=== PATIENT | female | born 1970 | race American Indian/Alaskan Native ===

== ENCOUNTER 2017-04-19 11:42 | Outpatient (CLI) | payer OTHER ==
--- NOTE | 2017-04-19 12:24 | XRay Report ---
ROUTINE CHEST, TWO VIEWS: HISTORY: chest pain. The trachea, heart, mediastinal contour, lung boyd and bony thorax are unremarkable. IMPRESSION: Unremarkable chest x-ray.
--- NOTE | 2017-04-19 13:21 | Mammography Report ---
Bilateral mammogram: Compared to 08/12/15. CAD study utilized. Findings: Scattered lingular parenchyma bilaterally. No mass or microcalcification. Benign axillary nodes. Impression: Benign findings. Annual followup recommended. BI-RADS CATEGORY: 2 = Benign ACR BI-RADS MAMMOGRAPHIC CODES: 0 = Needs additional imaging evaluation; 1 = Negative; 2 = Benign; 3 = Probably benign; 4 = Suspicious; 5 = Malignant; 6 = Known biopsy-proven malignancy COMMENT: 1. Dense breast tissue, i.e., adenosis, fibrocystic changes, etc., may obscure an underlying neoplasm. 2. Approximately 10% of cancers are not detected with mammography. 3. A negative mammography report should not delay biopsy if a clinically suspicious mass is present. COMMENT: Patient follow-up letters are generated in [employer].
== END 2017-04-19 11:43 | disposition home or self-care (01) ==
LOC: MAMMO 11:42
PROVIDERS: ATTEND Nurse Practitioner Family
DX: Z12.31 Encounter for screening mammogram for malignant neoplasm of breast (principal); R07.89 Other chest pain; I10 Essential (primary) hypertension
CPT/HCPCS: 71020; G0202; 77067

== ENCOUNTER 2021-12-31 14:33 | Observation (INO) | payer OTHER ==
[2021-12-31] MEDS ORDERED: SODIUM CHLORIDE 0.9% 1000 ML 1,000 ML ONE (14:57)
[2021-12-31] MEDS ORDERED: SODIUM CHLORIDE 0.9% 1000 ML 1,000 ML IV ONE (15:04)
--- NOTE | 2021-12-31 15:44 | XRay Report ---
CHEST 1 VIEW 12/31/2021 3:09 PM INDICATION / CLINICAL INFORMATION: Dysrhythmia. COMPARISON: 6-17 FINDINGS: SUPPORT DEVICES: None. HEART / MEDIASTINUM: Mild cardiomegaly. LUNGS / PLEURA: No significant pulmonary or pleural abnormality. No pneumothorax. ADDITIONAL FINDINGS: No significant additional findings. IMPRESSION: 1. Mild cardiomegaly. Signer Name: Carlton Barnard MD Signed: 12/31/2021 3:39 PM Workstation Name: [id number]
[2021-12-31 15:47] LABS: Basophils # (Auto) 0.1 K/mm3 (0.0-0.1); Basophils % (Auto) 0.9 % (0.0-1.8); Eosinophils % (Auto) 0.4 % (0.0-4.3); Hematocrit 48.2 % (30.3-42.9); Hemoglobin 15.4 gm/dl (10.1-14.3); Lymphocytes # (Auto) 1.2 K/mm3 (1.2-5.4); Lymphocytes % (Auto) 18.7 % (13.4-35.0); Mean Corpuscular HGB Conc 32 % (30-34); Mean Corpuscular Volume 88 fl (79-97); Monocytes # (Auto) 0.6 K/mm3 (0.0-0.8); Platelet Count 281 K/mm3 (140-440); Red Blood Count 5.47 M/mm3 (3.65-5.03); Red Cell Distribution Width 13.2 % (13.2-15.2)
[2021-12-31 15:58] LABS: INR 0.92 (0.87-1.13)
[2021-12-31 16:39] LABS: Creatine Kinase MB 3.5 ng/mL (0.0-4.0)
[2021-12-31 16:40] LABS: Alanine Aminotransferase 15 units/L (7-56); Albumin 3.7 g/dL (3.9-5); BUN/Creatinine Ratio 11; Blood Urea Nitrogen 10 mg/dL (7-17); Calcium 8.6 mg/dL (8.4-10.2); Hemolysis Index 16
[2021-12-31 16:51] LABS: Chol/HDL Ratio 4.19 %; HDL Cholesterol 42 mg/dL (40-59); LDL Cholesterol,Direct 121 mg/dL (50-130)
[2021-12-31] MEDS ORDERED: METOPROLOL TARTRATE 5 MG/5 ML INJ IV ONE (16:56)
--- NOTE | 2021-12-31 17:51 | Cat Scan Report ---
CTA CHEST WITH CONTRAST INDICATION / CLINICAL INFORMATION: palpitation. TECHNIQUE: Axial CT images were obtained through the chest after injection of 75 cc of Omnipaque 350 IV contrast. 3 plane MIP and/or 3D reconstructions were produced. All CT scans at this location are p erformed using CT dose reduction for ALARA by means of automated exposure control. COMPARISON: None available. FINDINGS: PULMONARY ARTERIES: No pulmonary emboli. The main pulmonary artery is dilated at 3.6 cm. THORACIC AORTA: No significant abnormality. HEART: Cardiomegaly. CORONARY ARTERY CALCIFICATION: None. MEDIASTINUM / DARCY: No significant abnormality. PLEURA: No pleural effusion. No pneumothorax. LUNGS: No acute air space or interstitial disease. ADDITIONAL FINDINGS: None. UPPER ABDOMEN: No acute findings. SKELETAL STRUCTURES: No significant osseous abnormality. IMPRESSION: 1. No CT evidence for pulmonary embolism. 2. Main pulmonary artery is dilated which can be seen with pulmonary artery hypertension. 3. Cardiomegaly. Signer Name: Carlton Barnard MD Signed: 12/31/2021 5:47 PM Workstation Name: [id number]
--- NOTE | 2021-12-31 18:05 | Emergency Department Report ---
ED Palpitations HPI - General Chief Complaint: Arrhythmia/Palpitations Stated Complaint: DIZZY/PALPITATION Time Seen by Provider: 12/31/21 14:46 Source: patient Mode of arrival: Ambulatory Limitations: No Limitations - History of Present Illness Initial Comments: Pt reports fast heart rate, pt states that she has had this happen before 10 years ago , she had some jael D yesterday no chest pain no sob MD Complaint: rapid heart beat, palpitations -: days(s) Arrythmia History: SVT - Related Data Allergies Allergy/AdvReac Type Severity Reaction Status Date / Time No Known Allergies Allergy Verified 12/31/21 14:42 ED Review of Systems ROS: Stated complaint: DIZZY/PALPITATION Other details as noted in HPI Constitutional: denies: chills, fever Eyes: denies: eye pain, eye discharge, vision change ENT: denies: ear pain, throat pain Respiratory: denies: cough, shortness of breath, wheezing Cardiovascular: denies: chest pain, palpitations Endocrine: no symptoms reported Gastrointestinal: denies: abdominal pain, nausea, diarrhea Genitourinary: denies: urgency, dysuria, discharge Musculoskeletal: denies: back pain, joint swelling, arthralgia Skin: denies: rash, lesions Neurological: denies: headache, weakness, paresthesias Psychiatric: denies: anxiety, depression Hematological/Lymphatic: denies: easy bleeding, easy bruising ED Past Medical Hx - Past Medical History Hx Hypertension: Yes Additional medical history: GRAVES DISEASE - Social History Smoking Status: Never Smoker Substance Use Type: Alcohol ED Physical Exam - General Limitations: No Limitations General appearance: alert, in no apparent distress - Head Head exam: Present: atraumatic, normocephalic - Eye Eye exam: Present: normal appearance - ENT ENT exam: Present: mucous membranes moist - Neck Neck exam: Present: normal inspection - Respiratory Respiratory exam: Present: normal lung sounds bilaterally. Absent: respiratory distress - Cardiovascular Cardiovascular Exam: Present: normal rhythm, tachycardia. Absent: systolic murmur, diastolic murmur, rubs, gallop - GI/Abdominal GI/Abdominal exam: Present: soft, normal bowel sounds - Extremities Exam Extremities exam: Present: normal inspection - Back Exam Back exam: Present: normal inspection - Neurological Exam Neurological exam: Present: alert, oriented X3 - Psychiatric Psychiatric exam: Present: normal affect, normal mood - Skin Skin exam: Present: warm, dry, intact, normal color. Absent: rash ED Course Vital Signs 12/31/21 12/31/21 14:43 15:00 Temperature 98.3 F Pulse Rate 162 H 144 H Respiratory 16 18 Rate Blood Pressure 81/44 111/65 O2 Sat by Pulse 97 98 Oximetry - Reevaluation(s) Reevaluation #1: 12/31/21 18:01 work up showed sinus tachycardia , fluids given , HR is down , trop was up , no chest pain , will admit for card consult ED Medical Decision Making - Lab Data Result diagrams: 12/31/21 15:38 12/31/21 15:38 Critical care attestation.: If time is entered above; I have spent that time in minutes in the direct care of this critically ill patient, excluding procedure time. ED Disposition Clinical Impression: Palpitation, Elevated troponin Disposition: ADMITTED INPATIENT Is pt being admited?: Yes Does the pt Need Aspirin: Yes Condition: Stable Referrals: JESSICA BROWN [Other] - 3-5 Days
[2021-12-31] MEDS ORDERED: ACETAMINOPHEN 325 MG TAB PO PRN (19:06)
[2021-12-31] MEDS ORDERED: ONDANSETRON 4 MG/2 ML INJ IV PRN (19:06)
[2021-12-31] MEDS ORDERED: oxyCODONE /ACETAMINOPHEN 5-325MG TAB PO PRN (19:06)
[2021-12-31] MEDS ORDERED: D5W/0.9% NACL 1,000 ML IV SCH (20:00)
[2021-12-31 20:10] LABS: Free T4 (Free Thyroxine) 1.45 ng/dL (0.76-1.46)
[2021-12-31] MEDS ORDERED: FAMOTIDINE 20 MG/2 ML INJ IV SCH (22:00)
[2022-01-01 05:02] LABS: Basophils # (Auto) 0.1 K/mm3 (0.0-0.1); Basophils % (Auto) 0.9 % (0.0-1.8); Eosinophils # (Auto) 0.1 K/mm3 (0.0-0.4); Hematocrit 42.3 % (30.3-42.9); Lymphocytes # (Auto) 1.8 K/mm3 (1.2-5.4); Lymphocytes % (Auto) 23.1 % (13.4-35.0); Mean Corpuscular HGB Conc 33 % (30-34); Mean Corpuscular Volume 88 fl (79-97); Monocytes # (Auto) 0.8 K/mm3 (0.0-0.8); Monocytes % (Auto) 9.9 % (0.0-7.3); Platelet Count 265 K/mm3 (140-440); Red Blood Count 4.79 M/mm3 (3.65-5.03)
[2022-01-01 05:21] LABS: Alanine Aminotransferase 14 units/L (7-56); Albumin 3.5 g/dL (3.9-5); BUN/Creatinine Ratio 10; Blood Urea Nitrogen 9 mg/dL (7-17); Calcium 8.2 mg/dL (8.4-10.2); Hemolysis Index 7
--- NOTE | 2022-01-01 06:43 | History and Physical Report ---
History of Present Illness Date of examination: 12/31/21 Date of admission: 12/31/21 19:06 Chief complaint: Palpitations for 1 day History of present illness: 51-year-old female with history of Graves' disease and hypertension comes in for palpitations since a.m. Patient took Linnea-D for cold and congestion. Patient is not on any medication for thyrotoxicosis. Noncompliant with medications. Patient had similar episode 10 years ago. No chest pain. No fever and chills. No nausea vomiting diarrhea. No recent exposure to Covid. Covid vaccination status was not asked - Past Medical History --Hypertension: Yes --Additional medical history: GRAVES' DISEASE - Past surgical history --not available - family history -- Htn - Social History --Smoking Status: Never Smoker --Substance Use Type: Alcohol Review of Systems ROS: Stated complaint: DIZZY/PALPITATION Other details as noted in HPI Constitutional: denies: chills, fever Eyes: denies: eye pain, eye discharge, vision change ENT: denies: ear pain, throat pain Respiratory: denies: cough, shortness of breath, wheezing Cardiovascular: denies: chest pain, palpitations Endocrine: no symptoms reported Gastrointestinal: denies: abdominal pain, nausea, diarrhea Genitourinary: denies: urgency, dysuria, discharge Musculoskeletal: denies: back pain, joint swelling, arthralgia Skin: denies: rash, lesions Neurological: denies: headache, weakness, paresthesias Psychiatric: denies: anxiety, depression Hematological/Lymphatic: denies: easy bleeding, easy bruising Medications and Allergies Allergies Allergy/AdvReac Type Severity Reaction Status Date / Time No Known Allergies Allergy Verified 12/31/21 14:42 Home Medications Medication Instructions Recorded Confirmed Last Taken Type Atenolol 50 mg PO DAILY 01/01/22 01/01/22 1 Day Ago History ~12/31/21 Levothyroxine Sodium [Euthyrox] 100 mcg PO DAILY 01/01/22 01/01/22 1 Day Ago History ~12/31/21 40 mg Omeprazole 40 mg PO DAILY 01/01/22 01/01/22 1 Day Ago History ~12/31/21 40 mg Spironolactone 100 mg PO DAILY 01/01/22 01/01/22 1 Day Ago History ~12/31/21 100 mg Vitamin C 1,000 mg PO DAILY 01/01/22 01/01/22 1 Day Ago History ~12/31/21 Active Meds: Active Medications Acetaminophen (Acetaminophen 325 Mg Tab) 650 mg PO Q4H PRN PRN Reason: Pain MILD(1-3)/Fever >100.5/ARGUELLES Famotidine (Famotidine 20 Mg/2 Ml Inj) 20 mg IV BID JUDY Dextrose/Sodium Chloride (D5ns) 1,000 mls @ 100 mls/hr IV DIRECT JUDY Last Admin: 01/01/22 05:45 Dose: 100 mls/hr Ondansetron HCl (Ondansetron 4 Mg/2 Ml Inj) 4 mg IV Q8H PRN PRN Reason: Nausea And Vomiting Oxycodone/Acetaminophen (Oxycodone /Acetaminophen 5-325mg Tab) 1 tab PO Q6H PRN PRN Reason: Pain, Moderate (4-6) Sodium Chloride (Sodium Chloride 0.9% 10 Ml Flush Syringe) 10 ml IV BID JUDY Sodium Chloride (Sodium Chloride 0.9% 10 Ml Flush Syringe) 10 ml IV PRN PRN PRN Reason: LINE FLUSH Exam - Constitutional Vitals: Temp Pulse Resp BP Pulse Ox 98 F 81 18 97/52 98 01/01/22 04:00 01/01/22 04:00 01/01/22 04:00 01/01/22 04:00 01/01/22 04:00 General appearance: Present: no acute distress, well-nourished - EENT Eyes: Present: PERRL ENT: hearing intact, clear oral mucosa - Neck Neck: Present: supple, normal ROM - Respiratory Respiratory effort: normal Respiratory: bilateral: CTA - Cardiovascular Heart rate: 78 Rhythm: regular Heart Sounds: Present: S1 & S2. Absent: rub, click - Extremities Extremities: no ischemia, pulses intact, pulses symmetrical, No edema Peripheral Pulses: within normal limits - Abdominal General gastrointestinal: Present: soft, non-tender, non-distended, normal bowel sounds Female genitourinary: Present: normal - Rectal Rectal Exam: deferred - Integumentary Integumentary: Present: clear, warm, dry - Musculoskeletal Musculoskeletal: gait normal, strength equal bilaterally - Psychiatric Psychiatric: appropriate mood/affect, intact judgment & insight - Neurologic Neurologic: CNII-XII intact, moves all extremities - Allied Health Allied health notes reviewed: nursing, case management HEART Score - HEART Score Troponin: Troponin T 0.041 ng/mL (0.00-0.029) H 12/31/21 15:38 Results - Labs CBC & Chem 7: 01/01/22 04:28 01/01/22 04:28 Labs: Laboratory Last Values WBC 7.7 K/mm3 (4.5-11.0) 01/01/22 04:28 RBC 4.79 M/mm3 (3.65-5.03) 01/01/22 04:28 Hgb 14.0 gm/dl (10.1-14.3) 01/01/22 04:28 Hct 42.3 % (30.3-42.9) 01/01/22 04:28 MCV 88 fl (79-97) 01/01/22 04:28 MCH 29 pg (28-32) 01/01/22 04:28 MCHC 33 % (30-34) 01/01/22 04:28 RDW 13.0 % (13.2-15.2) L 01/01/22 04:28 Plt Count 265 K/mm3 (140-440) 01/01/22 04:28 Lymph % (Auto) 23.1 % (13.4-35.0) 01/01/22 04:28 [place] % (Auto) 9.9 % (0.0-7.3) H 01/01/22 04:28 Eos % (Auto) 1.0 % (0.0-4.3) 01/01/22 04:28 Baso % (Auto) 0.9 % (0.0-1.8) 01/01/22 04:28 Lymph # (Auto) 1.8 K/mm3 (1.2-5.4) 01/01/22 04:28 [place] # (Auto) 0.8 K/mm3 (0.0-0.8) 01/01/22 04:28 Eos # (Auto) 0.1 K/mm3 (0.0-0.4) 01/01/22 04:28 Baso # (Auto) 0.1 K/mm3 (0.0-0.1) 01/01/22 04:28 Seg Neutrophils % 65.1 % (40.0-70.0) 01/01/22 04:28 Seg Neutrophils # 5.0 K/mm3 (1.8-7.7) 01/01/22 04:28 PT 13.4 Sec. (12.2-14.9) 12/31/21 15:38 INR 0.92 (0.87-1.13) 12/31/21 15:38 Sodium 141 mmol/L (137-145) 01/01/22 04:28 Potassium 3.6 mmol/L (3.6-5.0) 01/01/22 04:28 Chloride 107.3 mmol/L (98-107) H 01/01/22 04:28 Carbon Dioxide 23 mmol/L (22-30) 01/01/22 04:28 Anion Gap 14 mmol/L 01/01/22 04:28 BUN 9 mg/dL (7-17) 01/01/22 04:28 Creatinine 0.9 mg/dL (0.6-1.2) 01/01/22 04:28 Estimated GFR > 60 ml/min 01/01/22 04:28 BUN/Creatinine Ratio 10 % 01/01/22 04:28 Glucose 108 mg/dL (65-100) H 01/01/22 04:28 Calcium 8.2 mg/dL (8.4-10.2) L 01/01/22 04:28 Magnesium 1.90 mg/dL (1.7-2.3) 12/31/21 15:38 Total Bilirubin 0.50 mg/dL (0.1-1.2) 01/01/22 04:28 AST 18 units/L (5-40) 01/01/22 04:28 ALT 14 units/L (7-56) 01/01/22 04:28 Alkaline Phosphatase 66 units/L (35-129) 01/01/22 04:28 Total Creatine Kinase 132 units/L (30-135) 12/31/21 15:38 CK-MB (CK-2) 3.5 ng/mL (0.0-4.0) 12/31/21 15:38 CK-MB (CK-2) Rel Index 2.6 (0-4) 12/31/21 15:38 Troponin T 0.041 ng/mL (0.00-0.029) H 12/31/21 15:38 NT-Pro-B Natriuret Pep 571.9 pg/mL (0-900) 12/31/21 15:38 Total Protein 6.0 g/dL (6.3-8.2) L 01/01/22 04:28 Albumin 3.5 g/dL (3.9-5) L 01/01/22 04:28 Albumin/Globulin Ratio 1.4 % 01/01/22 04:28 Triglycerides 95 mg/dL (2-149) 12/31/21 15:38 Cholesterol 176 mg/dL (50-199) 12/31/21 15:38 LDL Cholesterol Direct 121 mg/dL (50-130) 12/31/21 15:38 HDL Cholesterol 42 mg/dL (40-59) 12/31/21 15:38 Cholesterol/HDL Ratio 4.19 % 12/31/21 15:38 TSH 0.193 mlU/mL (0.270-4.200) L 12/31/21 15:38 TSH 0.195 mlU/mL (0.270-4.200) L 12/31/21 15:38 Free T4 1.45 ng/dL (0.76-1.46) 12/31/21 15:38 Thyroxine (T4) 9.5 ug/dL (4.0-12.0) 12/31/21 15:38 Short CBC 12/31/21 01/01/22 Range/Units 15:38 04:28 WBC 6.3 7.7 (4.5-11.0) K/mm3 Hgb 15.4 H 14.0 (10.1-14.3) gm/dl Hct 48.2 H 42.3 (30.3-42.9) % Plt Count 281 265 (140-440) K/mm3 BMP 12/31/21 01/01/22 15:38 04:28 Sodium 139 141 Potassium 4.3 3.6 Chloride 105.1 107.3 H Carbon Dioxide 23 23 BUN 10 9 Creatinine 0.9 0.9 Glucose 101 H 108 H Calcium 8.6 8.2 L Cardiac Enzymes 12/31/21 Range/Units 15:38 Total Creatine Kinase 132 (30-135) units/L CK-MB (CK-2) 3.5 (0.0-4.0) ng/mL Troponin T 0.041 H (0.00-0.029) ng/mL Liver Function 12/31/21 01/01/22 Range/Units 15:38 04:28 Total Bilirubin 0.30 0.50 (0.1-1.2) mg/dL AST 20 18 (5-40) units/L ALT 15 14 (7-56) units/L Alkaline Phosphatase 82 66 (35-129) units/L Albumin 3.7 L 3.5 L (3.9-5) g/dL - Imaging and Cardiology EKG: report reviewed (Sinus tachycardia) Imaging and Cardiology: Chest x-ray Mild cardiomegaly CTA chest No CT evidence for pulmonary embolism Main pulmonary artery is dilated which can be seen with pulmonary artery hypertension Cardiomegaly Assessment and Plan Advance Directives: Yes (Full code) VTE prophylaxis?: Chemical Plan of care discussed with patient/family: Yes - Patient Problems (1) Tachycardia Current Visit: Yes Status: Acute Plan to address problem: Patient has tachycardia secondary to thyrotoxicosis Thyroid panel and T3-T4 requested IV fluids for now Patient started on methimazole (2) Hypertension Current Visit: Yes Status: Chronic Qualifiers: Hypertension type: primary hypertension Qualified Code(s): I10 - Essential (primary) hypertension Plan to address problem: Continue antihypertensives and adjust medications (3) Thyrotoxicosis Current Visit: Yes Status: Acute Qualifiers: Thyrotoxic crisis or storm presence: without thyrotoxic crisis or storm Plan to address problem: Thyroid panel T3-T4 requested TSH requested Patient to be started on methimazole 5 mg 3 times a day Patient also was started on propranolol 3 times a day (4) Elevated troponin Current Visit: Yes Status: Acute Plan to address problem: Troponin leak 1 more set of troponin and CK CK-MB (5) DVT prophylaxis Current Visit: Yes Status: Acute Plan to address problem: On anticoagulation GI prophylaxis (6) Advance care planning Current Visit: Yes Status: Acute Plan to address problem: Disease education conducted, care plan discussed, diagnosis discussed, prognosis discussed. Patient is full code. Patient acknowledges understanding and agreement with care plan. +30 minutes.
--- NOTE | 2022-01-01 07:04 | Event Note ---
Date: 12/31/21 Patient is supposed to be started on methimazole and propranolol because of Graves' disease Patient is apparently treated and is on levothyroxine 100 mcg Levothyroxine dosage decreased to 75 mcg because of the increased TSH T3 and T4 are normal Atenolol is appropriate in this patient Methimazole and propranolol were not started Admitted for observation for 23 hours and if symptomatically better patient to be discharged
[2022-01-01] MEDS ORDERED: PANTOPRAZOLE 40 MG TAB PO SCH (09:00)
[2022-01-01] MEDS ORDERED: LEVOTHYROXINE 75 MCG TAB PO SCH (09:00)
[2022-01-01] MEDS ORDERED: ASCORBIC ACID 500 MG TAB PO SCH (10:00)
[2022-01-01] MEDS ORDERED: SPIRONOLACTONE 100 MG PO SCH (10:00)
[2022-01-01] MEDS ORDERED: VITAMIN C 1000 MG PO SCH (10:00)
[2022-01-01] MEDS ORDERED: LEVOTHYROXINE 100 MCG TAB PO SCH (10:00)
[2022-01-01] MEDS ORDERED: NON-FORMULARY EACH (Omeprazole 40 MG) PO SCH (10:00)
[2022-01-01] MEDS ORDERED: ATENOLOL 50 MG PO SCH (10:00)
[2022-01-01] MEDS ORDERED: SPIRONOLACTONE 50 MG TAB PO SCH (10:00)
[2022-01-01] MEDS ORDERED: atenoloL 50 MG TAB PO SCH ×2 (10:00)
[2022-01-01] MEDS ORDERED: POLYETHYLENE GLYCOL 3350 17 GM POWDER PO SCH (10:00)
[2022-01-01] MEDS ORDERED: atenoloL 25 MG TAB PO SCH (11:00)
--- NOTE | 2022-01-01 12:27 | Discharge Summary ---
Providers - Providers Date of Admission: 12/31/21 19:06 Date of discharge: 01/01/22 Attending physician: CHANDLER AKHTAR MD Hospitalization Reason for admission: Thyrotoxicosis Condition: Stable Pertinent studies: Reviewed. Procedures: None. Hospital course: Patient is a 51-year-old female past medical history of Graves' disease and hypertension who presented yesterday with palpitations, shortness of breath, and lightheadedness. The patient endorses taking Linnea-D for cold and congestion + BC powder for approximately 2-4 weeks for nasal congestion that developed after recent COVID-19 infection. The patient endorses taking her levothyroxine daily; however, it was determined that she was not taking her medication appropriately. The patient was taking her levothyroxine at the same time as other medications, and she was also taking it at approximately 1 PM. Patient has been counseled on how to administer levothyroxine. Patient expresses understanding. On admission the patient was found to be tachycardic to 162 and her TSH was 0.193 with a T4 within normal limits. The decision was made to reduce her levothyroxine dose from 137mcg to 75 mcg daily. Patient will be restarted on atenolol 25 mg daily due to low blood pressure. Patient expresses understanding. Patient has been hemodynamically stable. Patient is medically clear for discharge. Patient has been counseled on following up with her primary care provider to have repeat TSH and free T4 levels drawn in approximately 2 weeks Disposition: 01 HOME / SELF CARE / HOMELESS Final Discharge Diagnosis (Prints w/discharge instructions): Thyrotoxicosis, Graves' disease, hypertension, obesity. Time spent for discharge: 45 min Core Measure Documentation - Palliative Care Palliative Care/ Comfort Measures: Not Applicable - Core Measures Any of the following diagnoses?: none Exam - Constitutional Vitals: Temp Pulse Resp BP Pulse Ox 98 F 81 18 97/52 98 01/01/22 04:00 01/01/22 06:45 01/01/22 04:00 01/01/22 04:00 01/01/22 04:00 General appearance: Present: no acute distress, well-nourished, obese - EENT Eyes: Present: PERRL, EOM intact ENT: hearing intact, clear oral mucosa, dentition normal - Neck Neck: Present: supple, normal ROM - Respiratory Respiratory effort: normal Respiratory: bilateral: CTA - Cardiovascular Rhythm: regular Heart Sounds: Present: S1 & S2 - Extremities Extremities: no ischemia, pulses intact, pulses symmetrical, No edema, normal temperature, normal color, Full ROM Peripheral Pulses: within normal limits - Abdominal General gastrointestinal: Present: soft, non-tender, non-distended, normal bowel sounds Female genitourinary: Present: deferred - Rectal Rectal Exam: deferred - Integumentary Integumentary: Present: clear, warm, dry - Musculoskeletal Musculoskeletal: strength equal bilaterally - Psychiatric Psychiatric: appropriate mood/affect, intact judgment & insight, memory intact, cooperative - Neurologic Neurologic: CNII-XII intact, moves all extremities - Allied Health Allied health notes reviewed: nursing Plan Activity: no restrictions Diet: low salt Additional Instructions: Patient is a 51-year-old female past medical history of Graves' disease and hypertension who presented yesterday with palpitations, shortness of breath, and lightheadedness. The patient endorses taking Linnea-D for cold and congestion + BC powder for approximately 2-4 weeks for nasal congestion that developed after recent COVID-19 infection. The patient endorses taking her levothyroxine daily; however, it was determined that she was not taking her medication appropriately. The patient was taking her levothyroxine at the same time as other medications, and she was also taking it at approximately 1 PM. Patient has been counseled on how to administer levothyroxine. Patient expresses understanding. On admission the patient was found to be tachycardic to 162 and her TSH was 0.193 with a T4 within normal limits. The decision was made to reduce her levothyroxine dose from 137mcg to 75 mcg daily. Patient will be restarted on atenolol 25 mg daily due to low blood pressure. Patient expresses understanding. Patient has been hemodynamically stable. Patient is medically clear for discharge. Patient has been counseled on following up with her primary care provider to have repeat TSH and free T4 levels drawn in approximately 2 weeks Care Plan Goals: Patient is medically clear for discharge. Assessment: Patient is a 51-year-old female past medical history of Graves' disease and hypertension who presented yesterday with palpitations, shortness of breath, and lightheadedness. The patient endorses taking Linnea-D for cold and congestion + BC powder for approximately 2-4 weeks for nasal congestion that developed after recent COVID-19 infection. The patient endorses taking her levothyroxine daily; however, it was determined that she was not taking her medication appropriately. The patient was taking her levothyroxine at the same time as other medications, and she was also taking it at approximately 1 PM. Patient has been counseled on how to administer levothyroxine. Patient expresses understanding. On admission the patient was found to be tachycardic to 162 and her TSH was 0.193 with a T4 within normal limits. The decision was made to r educe her levothyroxine dose from 137mcg to 75 mcg daily. Patient will be restarted on atenolol 25 mg daily due to low blood pressure. Patient expresses understanding. Patient has been hemodynamically stable. Patient is medically clear for discharge. Patient has been counseled on following up with her primary care provider to have repeat TSH and free T4 levels drawn in approximately 2 weeks. Follow up with: JESSICA BROWN [Other] - 3-5 Days Forms: Work/School Release Form Prescriptions: Levothyroxine [Synthroid] 75 mcg PO DAILY@0600 #30 tablet atenoloL [Tenormin] 25 mg PO QDAY #30 tablet
[2022-01-01 15:03] VITALS: BP 107/52
--- NOTE | 2022-01-02 13:16 | Electrocardiograph Report ---
[facility] Test Date: 2021-12-31 Test Time: 14:59:49 Pat Name: KODAK BERG Department: Room: A459 1 Gender: F Nitroglycerin Neutralizer: ALISON : 1970 Requested By: SHANEL ROLDAN Order Number: [id number] Reading MD: Nelsy Chang Measurements Intervals [place] Rate: 150 P: 0 [place]: QRS: 13 QRSD: 82 T: 60 QT: 285 QTc: 451 Interpretive Statements Supraventricular tachycardia No previous ECG available for comparison Electronically Signed On 01-02-2022 13:15:54 EST by Nelsy Chang
== END 2022-01-01 17:00 | disposition home or self-care (01) ==
LOC: ED 14:33 → 4A 19:06
PROVIDERS: ADMIT Internal Medicine; ATTEND Student in an Organized Health Care Education/Training Program
DX: R00.0 Tachycardia, unspecified (principal); I10 Essential (primary) hypertension; E05.90 Thyrotoxicosis, unspecified without thyrotoxic crisis or storm; R77.8 Other specified abnormalities of plasma proteins; E05.00 Thyrotoxicosis with diffuse goiter without thyrotoxic crisis or storm; R42 Dizziness and giddiness; Z79.899 Other long term (current) drug therapy; Z98.890 Other specified postprocedural states
CPT/HCPCS: 36415; 71045; 71275; 80053; 80061; 82550; 82553; 83735; 83880; 84436; 84439; 84443; 84484; 85025; 85610; 86800; 93005; 93010; 96361; 96374; 99285; G0378; J7030; J7042; J9280; Q9967; J3490; Q0162

== ENCOUNTER 2022-06-25 12:50 | Emergency (ER) | payer OTHER ==
--- NOTE | 2022-06-25 13:55 | Emergency Department Report ---
ED Palpitations HPI - General Chief Complaint: Arrhythmia/Palpitations Stated Complaint: RAPID HEARTBEAT Time Seen by Provider: 06/25/22 13:50 Source: patient Mode of arrival: Ambulatory Limitations: No Limitations - History of Present Illness Initial Comments: 51-year-old female with hypertension, obesity, Graves' disease,, previous admission in December 2021 for thyrotoxicosis, presents for evaluation of acute onset of palpitations. Patient states she awoke at 11 AM this morning and noticed her heart rate was "beating very fast." She reports experiencing intermittent tightness in her chest but denies any shortness of breath difficulty breathing chest pain or pain or swelling in her legs. No recent prolonged travel hx or immobilization. She denies any cough or URI symptoms. She denies using any energy drinks or drinking caffeinated products. She reports having used Linnea-[facility] 2 days ago. States that after her admission here in December 2021, she followed up with a mapping specialist and saw Dr. Lizandro Curran. She reports that at that time she underwent a 48-hour Holter monitor as well as an echocardiogram" he states there was nothing bad to be found and that I was to follow-up if needed." She states she has a follow-up appoint with her primary care doctor in 2 days which is Monday, June 27, 2022. - Related Data Home Medications Medication Instructions Recorded Confirmed Last Taken Omeprazole 40 mg PO DAILY 01/01/22 01/01/22 1 Day Ago ~12/31/21 40 mg Spironolactone 100 mg PO DAILY 01/01/22 01/01/22 1 Day Ago ~12/31/21 100 mg Vitamin C 1,000 mg PO DAILY 01/01/22 01/01/22 1 Day Ago ~12/31/21 Previous Rx's Medication Instructions Recorded Last Taken Type Levothyroxine [Synthroid] 75 mcg PO DAILY@0600 #30 tablet 01/01/22 Unknown Rx atenoloL [Tenormin] 25 mg PO QDAY #30 tablet 01/01/22 Unknown Rx Allergies Allergy/AdvReac Type Severity Reaction Status Date / Time No Known Allergies Allergy Verified 06/25/22 13:30 ED Review of Systems ROS: Stated complaint: RAPID HEARTBEAT Other details as noted in HPI Comment: All other systems reviewed and negative ED Past Medical Hx - Past Medical History Previous Medical History?: Yes Hx Hypertension: Yes Hx Congestive Heart Failure: No Hx Diabetes: No Hx Asthma: No Hx COPD: No Hx HIV: No Additional medical history: GRAVES DISEASE - Social History Smoking Status: Never Smoker - Medications Home Medications: Home Medications Medication Instructions Recorded Confirmed Last Taken Type Levothyroxine [Synthroid] 75 mcg PO DAILY@0600 #30 tablet 01/01/22 Unknown Rx Omeprazole 40 mg PO DAILY 01/01/22 01/01/22 1 Day Ago History ~12/31/21 40 mg Spironolactone 100 mg PO DAILY 01/01/22 01/01/22 1 Day Ago History ~12/31/21 100 mg Vitamin C 1,000 mg PO DAILY 01/01/22 01/01/22 1 Day Ago History ~12/31/21 atenoloL [Tenormin] 25 mg PO QDAY #30 tablet 01/01/22 Unknown Rx ED Physical Exam - General Limitations: No Limitations General appearance: alert, in no apparent distress, other (Friendly, comfortable appearing, no drooling no stridor no respiratory distress, breathing unlabored,) - Head Head exam: Present: atraumatic, normocephalic, normal inspection - Eye Eye exam: Present: normal appearance, PERRL, EOMI Pupils: Present: normal accommodation - ENT ENT exam: Present: normal exam, normal orophraynx - Neck Neck exam: Present: normal inspection, full ROM. Absent: tenderness, meningismus, lymphadenopathy, thyromegaly - Respiratory Respiratory exam: Present: normal lung sounds bilaterally, respiratory distress - Cardiovascular Cardiovascular Exam: Present: normal rhythm, tachycardia, normal heart sounds. Absent: irregular rhythm, systolic murmur, diastolic murmur, rubs, gallop, clicks, JVD, S3, S4 - GI/Abdominal GI/Abdominal exam: Present: soft, normal bowel sounds. Absent: distended, tenderness, guarding, rebound, rigid, diminished bowel sounds, hyperactive bowel sounds, hypoactive bowel sounds, organomegaly, mass, bruit, pulsatile mass - External exam: Present: erythema, swelling - Extremities Exam Extremities exam: Present: normal inspection, full ROM, normal capillary refill. Absent: tenderness, pedal edema, joint swelling, calf tenderness, other - Back Exam Back exam: Present: normal inspection, full ROM. Absent: tenderness, CVA tenderness (R), CVA tenderness (L), muscle spasm, paraspinal tenderness, vertebral tenderness, rash noted - Neurological Exam Neurological exam: Present: alert, oriented X3, CN II-XII intact, normal gait, reflexes normal. Absent: motor sensory deficit - Psychiatric Psychiatric exam: Present: normal affect, normal mood - Skin Skin exam: Present: warm, dry, intact, normal color ED Course Vital Signs 06/25/22 06/25/22 06/25/22 13:28 13:48 14:01 Temperature 98.8 F Pulse Rate 166 H 155 H Respiratory 18 15 Rate Blood Pressure 131/80 Blood Pressure 123/81 [Left] O2 Sat by Pulse 98 97 98 Oximetry 06/25/22 06/25/22 06/25/22 14:15 14:31 14:45 Temperature Pulse Rate 148 H 150 H 154 H Respiratory 15 15 15 Rate Blood Pressure 131/80 131/80 159/82 Blood Pressure [Left] O2 Sat by Pulse 96 97 98 Oximetry 06/25/22 06/25/22 06/25/22 15:01 15:15 15:31 Temperature Pulse Rate 147 H 134 H 132 H Respiratory 16 15 18 Rate Blood Pressure 159/82 158/86 158/86 Blood Pressure [Left] O2 Sat by Pulse 97 96 96 Oximetry 06/25/22 06/25/22 06/25/22 15:45 16:01 16:21 Temperature Pulse Rate 135 H 140 H 134 H Respiratory 18 10 L 18 Rate Blood Pressure 135/79 159/82 135/79 Blood Pressure [Left] O2 Sat by Pulse 96 96 96 Oximetry 06/25/22 06/25/22 06/25/22 16:31 16:41 16:51 Temperature Pulse Rate 134 H 140 H 141 H Respiratory 18 17 13 Rate Blood Pressure 135/79 135/79 134/61 Blood Pressure [Left] O2 Sat by Pulse 97 96 96 Oximetry 06/25/22 06/25/22 06/25/22 17:01 17:11 17:21 Temperature Pulse Rate 142 H 93 H 91 H Respiratory 14 11 L 11 L Rate Blood Pressure 134/61 134/61 124/74 Blood Pressure [Left] O2 Sat by Pulse 94 97 98 Oximetry 06/25/22 06/25/22 06/25/22 17:31 17:41 17:51 Temperature Pulse Rate 87 89 85 Respiratory 16 16 14 Rate Blood Pressure 124/74 124/74 119/67 Blood Pressure [Left] O2 Sat by Pulse 97 96 97 Oximetry 06/25/22 06/25/22 06/25/22 18:01 18:11 18:21 Temperature Pulse Rate 86 82 84 Respiratory 18 17 16 Rate Blood Pressure 119/67 119/67 112/68 Blood Pressure [Left] O2 Sat by Pulse 98 96 97 Oximetry 06/25/22 06/25/22 06/25/22 18:31 18:41 18:51 Temperature Pulse Rate 85 84 82 Respiratory 15 18 14 Rate Blood Pressure 112/68 112/68 113/76 Blood Pressure [Left] O2 Sat by Pulse 97 96 98 Oximetry 06/25/22 06/25/22 06/25/22 19:01 19:11 19:26 Temperature Pulse Rate 83 82 Respiratory 16 17 Rate Blood Pressure 113/76 113/76 105/53 Blood Pressure [Left] O2 Sat by Pulse 98 96 98 Oximetry 06/25/22 06/25/22 06/25/22 19:31 19:41 19:42 Temperature Pulse Rate 81 80 Respiratory 14 13 Rate Blood Pressure 105/53 105/53 Blood Pressure [Left] O2 Sat by Pulse 98 97 98 Oximetry 06/25/22 06/25/22 06/25/22 19:51 20:01 20:11 Temperature Pulse Rate 84 80 81 Respiratory 17 16 15 Rate Blood Pressure 113/72 113/76 113/76 Blood Pressure [Left] O2 Sat by Pulse 96 97 98 Oximetry 06/25/22 06/25/22 20:21 20:31 Temperature Pulse Rate 80 79 Respiratory 17 15 Rate Blood Pressure 116/69 116/69 Blood Pressure [Left] O2 Sat by Pulse 97 97 Oximetry - Reevaluation(s) Reevaluation #1: 06/25/22 17:41 pt is well appearing; denies any active chest pain shortness of breath difficulty breathing palpitations lightheadedness dizziness. 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 We will continue to monitor. Reevaluation #2: 06/25/22 19:11: Patient is comfortable and well-appearing. Heart rate is 86 bpm. Remainder vital stable. Patient denies any symptoms. She is smiling and comfortable mena earing, no acute distress Reevaluation #3: 06/25/22 20:50 Patient reassessed. I had an extensive discussion with her. Her heart rate on the monitor is 81 bpm and blood pressure is 116/79mmHG. Shared decision making made with the patient. Patient informed that her troponin has slightly been elevated from the initial value but she has affirmed to multiple times and again currently during my discussion with her at this time, that she has had no palpitations and no recurrent chest pain shortness of breath difficulty breathing or palpitations. Patient offered admission to the hospitalist service for overnight observation and repeat cardiac enzymes. However,she patient declined stating she has a confirmed follow-up appointment with her primary care doctor in 2 days, Saturday, June 27, 2022. She states that at that time "I will ask him to recheck the heart enzymes again. Besides I feel fine and I do not have any symptoms right now." Patient confirmed multiple times that she feels well and would like to go home and does not want to be kept in the hospit al for overnight observation. Patient will be discharged home per her request ED Medical Decision Making - Lab Data Result diagrams: 06/25/22 13:49 06/25/22 13:49 - EKG Data -: EKG Interpreted by Me EKG shows normal: sinus rhythm Rate: tachycardia - EKG Data When compared to previous EKG there are: no significant change 06/25/22 13:54 EKG interpreted by me: Ventricular rate 153 bpm. Patient has no discernible P waves are present and proceed every QRS complex. Patient has narrow QRS QRS complex. No ST segment depressions or elevations. No T wave flattening inversions. No ectopy. No arrhythmia. Findings consistent with sinus tachycardia. 06/25/22 20:56 - Radiology Data Radiology results: report reviewed - Medical Decision Making 51-year-old female presents for evaluation of palpitations. Patient tachycardic on examination. She remains very comfortable and well-appearing. Lab results reviewed. Patient given atenolol 1 mg IV push, and then subsequently home dose of atenolol 5 mg p.o. Tachycardia resolved and she remained asymptomatic for several hours under continued observation here. Labs reviewed. Patient has elevated troponin levels x2 but has remained persistently asymptomatic. This is likely demand ischemia secondary to patient's tachycardia. TSH level elevated and free T4 is normal. Shared decision making made with the patient concerning her elevated troponin levels and she declines to be admitted to the hospital at this time and request to be discharged, stating she will follow-up with her primary care doctor. Patient discharged per her request. Prior to discharge she was given strict verbal and written return precautions. Patient verbalized understanding agreed the plan of care. Critical care attestation.: If time is entered above; I have spent that time in minutes in the direct care of this critically ill patient, excluding procedure time. ED Disposition Clinical Impression: Tachycardia, Palpitation, Elevated troponin Disposition: HOME / SELF CARE / HOMELESS Is pt being admited?: No Does the pt Need Aspirin: No Condition: Stable Instructions: Sinus Tachycardia, Palpitations, [id number] Additional Instructions: Follow-up with your primary care doctor as scheduled for reevaluation. Some of your important lab values have been listed below. It is strongly advised that you discuss them with your doctor and have him repeat them during your outpatient evaluation on June 27, 2022. This is very important. Please do not take atenolol tonight. You may resume your other regular medications. -Cholsterol, 234 -LDH cholesterol, 176 -TSH: 9.270 -Free T4: 1.02 Observe your symptoms very carefully because they may change. Call 911 and ret urn to the nearest emergency department soon as possible if you develop recurrent palpitations, any chest pain, shortness of breath, difficulty breathing, palpitations, vomiting, lightheadedness or dizziness, or if any other new worrisome symptoms develop Referrals: JARROD BROWN MD [Primary Care Provider] - 3-5 Days
[2022-06-25] MEDS ORDERED: SODIUM CHLORIDE 0.9% 1000 ML 1,000 ML IV ONE (13:58)
--- NOTE | 2022-06-25 14:42 | XRay Report ---
CHEST 1 VIEW 06/25/2022 1:34 PM INDICATION / CLINICAL INFORMATION: palpitations. COMPARISON: 12/31/2021 FINDINGS: SUPPORT DEVICES: None. HEART / MEDIASTINUM: Cardiomegaly LUNGS / PLEURA: Increased pulmonary vascularity with mild congestive change No pneumothorax. Signer Name: Errol Walters MD Signed: 06/25/2022 2:37 PM Workstation Name: [id number]
[2022-06-25] MEDS ORDERED: PROPRANOLOL 1 MG/1 ML INJ IV ONE (14:50)
[2022-06-25 14:59] LABS: Alanine Aminotransferase 15 units/L (7-56); Albumin 4.3 g/dL (3.9-5); BUN/Creatinine Ratio 13; Blood Urea Nitrogen 13 mg/dL (7-17); Calcium 9.6 mg/dL (8.4-10.2); Hemolysis Index 36
[2022-06-25 15:14] LABS: Basophils # (Auto) 0.1 K/mm3 (0.0-0.1); Eosinophils # (Auto) 0.1 K/mm3 (0.0-0.4); Eosinophils % (Auto) 2.2 % (0.0-4.3); Hemoglobin 16.3 gm/dl (10.1-14.3); Lymphocytes # (Auto) 1.3 K/mm3 (1.2-5.4); Lymphocytes % (Auto) 20.3 % (13.4-35.0); Mean Corpuscular HGB Conc 33 % (30-34); Mean Corpuscular Volume 90 fl (79-97); Monocytes # (Auto) 0.6 K/mm3 (0.0-0.8); Monocytes % (Auto) 8.9 % (0.0-7.3); Platelet Count 306 K/mm3 (140-440); Red Blood Count 5.45 M/mm3 (3.65-5.03)
[2022-06-25 15:21] LABS: Amphetamine Screen,Urine Negative; Benzodiazepines Screen,Urine Negative; Cannabinoid Screen,Urine Negative; Cocaine Screen,Urine Negative; Methadone Screen,Urine Negative; Opiate Screen,Urine Negative
[2022-06-25] MEDS ORDERED: atenoloL 25 MG TAB PO ONE (15:48)
[2022-06-25] MEDS ORDERED: METOPROLOL TARTRATE 5 MG/5 ML INJ IV ONE (16:52)
[2022-06-25 19:15] LABS: Chol/HDL Ratio 4.87 %
[2022-06-25 21:01] VITALS: BP 109/82
--- NOTE | 2022-06-27 10:51 | Electrocardiograph Report ---
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 Electronically Signed On 06-27-2022 10:51:00 EDT by William Lowry
== END 2022-06-25 21:11 | disposition home or self-care (01) ==
LOC: ED 12:50
DX: R00.0 Tachycardia, unspecified (principal); R00.2 Palpitations; R77.8 Other specified abnormalities of plasma proteins; I10 Essential (primary) hypertension; Z79.899 Other long term (current) drug therapy
CPT/HCPCS: 36415; 71045; 80053; 80061; 80307; 83735; 83880; 84439; 84443; 84484; 85025; 85379; 93005; 96361; 96374; 99284; J1800; J7030